=== PATIENT | male | born 1975 | race Caucasian/White ===

== ENCOUNTER 2020-06-11 18:04 | Emergency (ER) | payer OTHER ==
[2020-06-11] MEDS ORDERED: CEPHALEXIN500 M1 PO (19:52)
[2020-06-11] MEDS ORDERED: BACTROBAN OINT22 GM EXT (19:52)
[2020-06-11] MEDS ORDERED: IBUPROFEN600 MG PO (19:52)
== END 2020-06-11 20:07 | disposition home or self-care (01) ==
LOC: ER1 18:04
DX: S51.812A Laceration without foreign body of left forearm, initial encounter (principal); W26.9XXA Contact with unspecified sharp object(s), initial encounter; Y92.009 Unspecified place in unspecified non-institutional (private) residence as the place of occurrence of the external cause
CPT/HCPCS: 12002; 99283

== ENCOUNTER → 2020-11-15 | Outpatient (CLI) | payer OTHER ==
[~2020-11-15] MED LIST: BACTROBAN OINT22 GM EXT; CEPHALEXIN500 M1 PO; IBUPROFEN600 MG PO
== END ==
LOC: RAD 09:04
DX: M54.9 Dorsalgia, unspecified (principal); M54.2 Cervicalgia; M25.511 Pain in right shoulder
CPT/HCPCS: 72050; 72072; 73030

== ENCOUNTER → 2021-01-06 | Outpatient (CLI) | payer OTHER ==
[2021-01-06 13:33] LABS: BUN/CREATININE RATIO 14 (0-10)
[2021-01-07 08:13] LABS: RHEUMATOID ARTHRITIS FACTOR <10.0 IU/mL (0.0-13.9)
== END ==
LOC: LAB 11:34
PROVIDERS: Family Medicine
DX: E78.2 Mixed hyperlipidemia (principal); R79.89 Other specified abnormal findings of blood chemistry; M13.0 Polyarthritis, unspecified; M25.551 Pain in right hip; M79.671 Pain in right foot; G89.29 Other chronic pain
CPT/HCPCS: 36415; 73502; 73630; 80053; 80061; 84439; 84443; 84550; 86038; 86200; 86431

== ENCOUNTER → 2021-01-14 | Outpatient (CLI) | payer OTHER | LOC: KOH-I 10:02 | DX: R42 Dizziness and giddiness (principal); H53.8 Other visual disturbances; R51.9 Headache, unspecified | CPT/HCPCS: 70551 ==

== ENCOUNTER 2021-02-28 11:54 | Emergency (ER) | payer OTHER ==
[~2021-02-28] VITALS: Ht 180.3 cm; Wt 119.3 kg
== END 2021-02-28 15:15 | disposition home or self-care (01) ==
LOC: ER1 11:54
DX: U07.1 COVID-19 (principal); J12.82 Pneumonia due to coronavirus disease 2019; Z88.8 Allergy status to other drugs, medicaments and biological substances; Z23 Encounter for immunization
CPT/HCPCS: 71045; 99283; M0245

== ENCOUNTER → 2021-05-08 | Outpatient (CLI) | payer OTHER | LOC: HEART 5 10:52 | DX: R07.9 Chest pain, unspecified (principal) ==

== ENCOUNTER → 2021-06-27 | Outpatient (CLI) | payer OTHER | LOC: EXRD 06-09 11:30 | DX: N50.812 Left testicular pain (principal); N50.3 Cyst of epididymis; I86.1 Scrotal varices | CPT/HCPCS: 76870 ==